=== PATIENT | female | born 1935 | race Caucasian/White ===

== ENCOUNTER 2018-10-19 11:44 | Inpatient (IN) | payer MEDICARE, MEDICAID ==
[~2018-10-19] VITALS: Ht 147.3 cm; Wt 54.0 kg
[2018-10-19] MEDS ORDERED: FUROSEMIDE 40MG/4ML VIAL IV ONE (12:30)
[2018-10-19 13:00] LABS: HEMATOCRIT. 47.6 % (36.0-48.0); HEMOGLOBIN. 16.1 g/dL (12.0-16.0); MEAN CORPUSCULAR HEMOGLOBIN 33.1 pg (28.0-32.0); MEAN CORPUSCULAR VOLUME 98.1 fL (81.0-99.0); MEAN PLATELET VOLUME 7.6 fl (7.4-10.4); PLATELET 287 x1000/uL (130-400); RED BLOOD CELL COUNT 4.85 mill/uL (4.2-5.4); RED CELL DISTRIBUTION WIDTH 15.1 % (11.6-14.6)
[2018-10-19 13:04] LABS: CHLORIDE 100 mEq/L (98-107)
[2018-10-19 13:30] LABS: PLATELET ESTIMATE NORMAL
[2018-10-19] MEDS ORDERED: ASPIRIN 325MG TABLET PO ONE (13:30)
[2018-10-19 16:00] VITALS: BP 122/71
[2018-10-19] MEDS ORDERED: POTA-79 MT (16:03)
[2018-10-19] MEDS ORDERED: FURO20TA4 MT (16:03)
[2018-10-19] MEDS ORDERED: PRED10TA23 MT (16:03)
[2018-10-19 17:08] VITALS: BP 122/71
[2018-10-19] MEDS ORDERED: DEXT 5%/0.45% NACL 1000ML 1,000 ML IV SCH (17:38)
[2018-10-19] MEDS ORDERED: ACETAMINOPHEN 325MG TABLET PO PRN (17:45)
[2018-10-19] MEDS ORDERED: HYDROMORPHONE HCL/PF 2MG/ML CPJ IV PRN (17:45)
[2018-10-19] MEDS ORDERED: ONDANSETRON HCL 4MG/2ML INJ IV PRN (17:45)
[2018-10-19] MEDS ORDERED: LORAZEPAM 2MG/ML CPJ IV PRN (17:45)
[2018-10-19] MEDS ORDERED: CELECOXIB 200MG CAPSULE PO SCH (18:15)
[2018-10-19] MEDS ORDERED: ENOXAPARIN 40MG/0.4ML SYR SUBCUT SCH ×2 (19:00→20:00)
[2018-10-19] MEDS ORDERED: LEVOFLOXACIN 500MG PREMIX 100 ML IV NR (19:30)
[2018-10-19 20:00] VITALS: BP 127/52
[2018-10-19] MEDS ORDERED: INFLUENZA VIRUS VACCINE(AFLURIA) 0.5ML SYR IM ONE (20:00)
[2018-10-19] MEDS: ATORVASTATIN CALCIUM 20MG TABLET PO SCH (20:55)
[2018-10-19] MEDS: DEXT 5%/0.45% NACL 1000ML 1,000 ML IV SCH (20:55)
[2018-10-19] MEDS: FUROSEMIDE 40MG TABLET PO SCH (20:56)
[2018-10-19] MEDS: CYCLOBENZAPRINE 10MG TABLET PO SCH (20:56)
[2018-10-19] MEDS: CELECOXIB 200MG CAPSULE PO SCH (20:56)
[2018-10-20] VITALS: BP 135/69
[2018-10-20 04:00] VITALS: BP 112/67
[2018-10-20 07:38] LABS: CHLORIDE 97 mEq/L (98-107)
[2018-10-20 07:42] LABS: HEMATOCRIT. 44.5 % (36.0-48.0); HEMOGLOBIN. 15.2 g/dL (12.0-16.0); MEAN CORPUSCULAR HEMOGLOBIN 33.3 pg (28.0-32.0); MEAN CORPUSCULAR VOLUME 97.9 fL (81.0-99.0); MEAN PLATELET VOLUME 7.7 fl (7.4-10.4); PLATELET 277 x1000/uL (130-400); RED BLOOD CELL COUNT 4.55 mill/uL (4.2-5.4)
[2018-10-20 07:47] LABS: T4 FREE 0.95 ng/dL (0.76-1.46)
[2018-10-20 08:53] VITALS: BP 102/58
[2018-10-20] MEDS: CALCIUM CARBONATE 1250MG TABLET (500MG ELEMENTAL CALCIUM) PO SCH ×3 (09:51→17:00)
[2018-10-20] MEDS: FOLIC ACID 1MG TABLET PO SCH (09:51)
[2018-10-20] MEDS: POTASSIUM CHLORIDE 10MEQ TABLET SR PO SCH ×2 (09:52→17:29)
[2018-10-20] MEDS: CELECOXIB 200MG CAPSULE PO SCH ×2 (09:52→17:29)
[2018-10-20] MEDS: CHOLECALCIFEROL (VIT D3) 400 UNIT TABLET PO SCH (09:52)
[2018-10-20] MEDS: FUROSEMIDE 40MG TABLET PO SCH ×2 (09:52→20:45)
[2018-10-20] MEDS: PREDNISONE 10MG TABLET PO SCH (09:52)
[2018-10-20 12:24] VITALS: BP 100/52
[2018-10-20] MEDS ORDERED: REGADENOSON 0.4 MG/5 ML IV NR (15:15)
[2018-10-20] MEDS ORDERED: KCL 20MEQ/100ML PREMIX 100 ML IV ONE (15:15)
[2018-10-20 16:42] VITALS: BP 103/64
[2018-10-20] MEDS ORDERED: KCL 20MEQ/100ML PREMIX 100 ML IV NR (17:00)
[2018-10-20 17:11] LABS: PLATELET ESTIMATE NORMAL
[2018-10-20] MEDS: SILVER SULFADIAZINE 1% CREAM 50GM TOP SCH (17:30)
[2018-10-20] MEDS ORDERED: LEVOFLOXACIN 250MG PREMIX 50 ML IV SCH (20:00)
[2018-10-20] MEDS ORDERED: ENOXAPARIN 30MG/0.3ML SYR SUBCUT SCH (20:00)
[2018-10-20] MEDS: CYCLOBENZAPRINE 10MG TABLET PO SCH (20:45)
[2018-10-20] MEDS: ATORVASTATIN CALCIUM 20MG TABLET PO SCH (20:45)
[2018-10-21] VITALS: BP 109/61
[2018-10-21 04:00] VITALS: BP 128/60
[2018-10-21 06:22] LABS: HEMATOCRIT. 45.3 % (36.0-48.0); HEMOGLOBIN. 15.3 g/dL (12.0-16.0); MEAN CORPUSCULAR HEMOGLOBIN 33.6 pg (28.0-32.0); MEAN CORPUSCULAR VOLUME 99.1 fL (81.0-99.0); MEAN PLATELET VOLUME 7.5 fl (7.4-10.4); PLATELET 242 x1000/uL (130-400); RED BLOOD CELL COUNT 4.57 mill/uL (4.2-5.4); RED CELL DISTRIBUTION WIDTH 14.9 % (11.6-14.6)
[2018-10-21] MEDS: FOLIC ACID 1MG TABLET PO SCH (08:01)
[2018-10-21] MEDS: CALCIUM CARBONATE 1250MG TABLET (500MG ELEMENTAL CALCIUM) PO SCH ×2 (08:01→14:36)
[2018-10-21] MEDS: CELECOXIB 200MG CAPSULE PO SCH (08:01)
[2018-10-21] MEDS: CHOLECALCIFEROL (VIT D3) 400 UNIT TABLET PO SCH (08:01)
[2018-10-21 08:12] LABS: CHLORIDE 99 mEq/L (98-107)
[2018-10-21] MEDS ORDERED: METHOTREXATE SODIUM/PF 50 MG/2 ML VIAL IM SCH (09:00)
[2018-10-21] MEDS ORDERED: REGADENOSON 0.4 MG/5 ML IV ONE (09:49)
[2018-10-21] MEDS: POTASSIUM CHLORIDE 10MEQ TABLET SR PO SCH (11:35)
[2018-10-21] MEDS: PREDNISONE 10MG TABLET PO SCH (11:35)
[2018-10-21] MEDS: SILVER SULFADIAZINE 1% CREAM 50GM TOP SCH (11:35)
[2018-10-21] MEDS: FUROSEMIDE 40MG TABLET PO SCH (11:35)
[2018-10-21] MEDS: DEXT 5%/0.45% NACL 1000ML 1,000 ML IV SCH (11:36)
[2018-10-21 12:00] VITALS: BP 110/47
[2018-10-21 13:33] LABS: PLATELET ESTIMATE NORMAL
[2018-10-21 14:52] VITALS: BP 110/47
[2018-10-21] MEDS ORDERED: ENOXAPARIN 40MG/0.4ML SYR SUBCUT SCH (21:00)
== END 2018-10-21 15:46 | disposition home health service (06) | DRG 293 ==
LOC: ER 11:44 → 6WST 13:40 → EDBEDREQ 13:43 → EDBEDREQTM 13:43 → EDBEDREQ 13:44 → ENRESERV 13:56
PROVIDERS: ADMIT Internal Medicine Rheumatology; ATTEND Internal Medicine Rheumatology
DX: I50.33 Acute on chronic diastolic (congestive) heart failure (principal); M35.00 Sjogren syndrome, unspecified; E87.6 Hypokalemia; J44.9 Chronic obstructive pulmonary disease, unspecified; E78.00 Pure hypercholesterolemia, unspecified; M06.80 Other specified rheumatoid arthritis, unspecified site; E78.5 Hyperlipidemia, unspecified; M51.36 Other intervertebral disc degeneration, lumbar region; M50.30 Other cervical disc degeneration, unspecified cervical region; M81.0 Age-related osteoporosis without current pathological fracture; G72.9 Myopathy, unspecified; M41.86 Other forms of scoliosis, lumbar region; F41.9 Anxiety disorder, unspecified; K58.9 Irritable bowel syndrome, unspecified; I73.9 Peripheral vascular disease, unspecified; I51.9 Heart disease, unspecified; I77.6 Arteritis, unspecified; M47.816 Spondylosis without myelopathy or radiculopathy, lumbar region; M47.892 Other spondylosis, cervical region; Z82.49 Family history of ischemic heart disease and other diseases of the circulatory system; Z82.0 Family history of epilepsy and other diseases of the nervous system; Z79.899 Other long term (current) drug therapy; Z90.49 Acquired absence of other specified parts of digestive tract
CPT/HCPCS: 36415; 71045; 72110; 78452; 80048; 83735; 83880; 84439; 84484; 93005; 93017; 93306; 93970; 96374; 97162; 97166; 99285; A9500; C1893; J1650; J1940; J1956; J2785; J3480; J3490; J7512; J9260

== ENCOUNTER 2018-11-01 12:35 | Inpatient (IN) | payer MEDICARE, MEDICAID ==
[~2018-11-01] VITALS: Ht 157.5 cm; Wt 58.1 kg
[~2018-11-01 12:35] MED LIST: FURO20TA4 MT; POTA-79 MT; PRED10TA23 MT
[2018-11-01 13:27] LABS: HEMATOCRIT. 43.2 % (36.0-48.0); HEMOGLOBIN. 14.9 g/dL (12.0-16.0); MEAN CORPUSCULAR HEMOGLOBIN 33.6 pg (28.0-32.0); MEAN CORPUSCULAR VOLUME 97.5 fL (81.0-99.0); MEAN PLATELET VOLUME 7.6 fl (7.4-10.4); PLATELET 151 x1000/uL (130-400); RED BLOOD CELL COUNT 4.43 mill/uL (4.2-5.4); RED CELL DISTRIBUTION WIDTH 14.9 % (11.6-14.6)
[2018-11-01 13:32] LABS: CHLORIDE 95 mEq/L (98-107)
[2018-11-01 13:48] LABS: PLATELET ESTIMATE NORMAL
[2018-11-01] MEDS ORDERED: AZITHROMYCIN 500 MG in DEXT 5% WATER 250 ML IV STA (14:00)
[2018-11-01] MEDS ORDERED: CEFTRIAXONE 1 G PREMIX 50 ML IV STA (14:00)
[2018-11-01] MEDS ORDERED: ENOXAPARIN 60MG/0.6ML SYR SUBCUT NR (15:00)
[2018-11-01 17:35] LABS: CLARITY URINE CLOUDY (CLEAR); COLOR URINE YELLOW (YELLOW); KETONES URINE NEGATIVE (NEGATIVE); LEUKOCYTE ESTERASE URINE 1+ (NEGATIVE); NITRITE URINE NEGATIVE (NEGATIVE); OCCULT BLOOD URINE 1+ (NEGATIVE); PROTEIN URINE NEGATIVE (NEGATIVE); SPECIFIC GRAVITY URINE 1.031 (1.005-1.030); UROBILINOGEN URINE 0.2 E.U./dL (0.2-1.0)
[2018-11-01] MEDS ORDERED: IPRATROPIUM/ALBUTEROL 0.5-3(2.5)MG/3ML NEB HHN SCH (18:15)
[2018-11-01] MEDS ORDERED: ONDANSETRON HCL 4MG/2ML INJ IV PRN (18:45)
[2018-11-01] MEDS ORDERED: DIPHENHYDRAMINE 50MG/ML VIAL IV PRN (18:45)
[2018-11-01] MEDS ORDERED: MAGNESIUM/ALUMINUM HYDROXIDE/SIMETHICONE 30ML UDC PO PRN (18:45)
[2018-11-01 19:07] LABS: BG BASE EXCESS -1.3 mmol/L (-2.0-2.0); BG CARBOXYHEMOGLOBIN 1.2 % (0.5-1.5); BG DEOXYHEMOGLOBIN 14.7 % (0.0-5.0); BG FRACTION INSPIRED OXYGEN 32; BG HCO3 ACT 20.5 mmol/L (22.0-26.0); BG METHEMOGLOBIN 0.3 % (0.0-1.5); BG OXYGEN SATURATION 85.1 % (92.0-98.5); BG OXYHEMOGLOBIN 83.8 % (94.0-97.0); BG PCO2 26.8 mmHg (35.0-45.0); BG PH 7.502 (7.350-7.450); BG PO2 47.6 mmHg (75.0-100.0); BG SAMPLE SITE LEFT RADIAL; BG TOTAL HEMOGLOBIN 12.9 g/dL (12.0-18.0); BG VENT MODE NASAL CANNULA
[2018-11-02] VITALS (7 sets, daily range): BP systolic 87–123; BP diastolic 51–83
[2018-11-02] MEDS ORDERED: SODIUM CHLORIDE 0.9% 500 ML IV PRN (02:15)
[2018-11-02] MEDS ORDERED: METOPROLOL TARTRATE 5MG/5ML VIAL IV PRN (02:15)
[2018-11-02] MEDS: DEXT 5%/0.45% NACL 1000ML 1,000 ML IV SCH ×2 (02:51→14:26)
[2018-11-02] MEDS: DOCUSATE SODIUM 100MG CAPSULE PO SCH ×2 (07:57→18:14)
[2018-11-02 13:06] LABS: CHLORIDE 99 mEq/L (98-107)
[2018-11-02 13:10] LABS: INR 1.1; PARTIAL THROMBOPLASTIN TIME 29.8 sec (23.4-31.0); PROTHROMBIN TIME 10.7 sec (9.1-11.1)
[2018-11-02 13:15] LABS: CREATINE KINASE 29 IU/L (26-192)
[2018-11-02 13:17] LABS: CREATINE KINASE MB FRACTION < 1.0 ng/mL (0.5-3.6)
[2018-11-02] MEDS ORDERED: SODIUM BICARBONATE 4% (2.4MEQ) 5ML VIAL IV ONE (13:32)
[2018-11-02] MEDS ORDERED: IOHEXOL-300 100 ML BOTTLE ONE (13:32)
[2018-11-02] MEDS ORDERED: LIDOCAINE HCL 1% 20ML VIAL (Pyxis) INJ ONE (13:32)
[2018-11-02 15:14] LABS: BG BASE EXCESS 2.5 mmol/L (-2.0-2.0); BG DEOXYHEMOGLOBIN 10.3 % (0.0-5.0); BG FRACTION INSPIRED OXYGEN 100; BG HCO3 ACT 24.5 mmol/L (22.0-26.0); BG METHEMOGLOBIN 0.1 % (0.0-1.5); BG OXYGEN SATURATION 89.6 % (92.0-98.5); BG OXYHEMOGLOBIN 88.6 % (94.0-97.0); BG PCO2 30.3 mmHg (35.0-45.0); BG PH 7.525 (7.350-7.450); BG SAMPLE SITE RIGHT BRACHIAL; BG TOTAL HEMOGLOBIN 13.4 g/dL (12.0-18.0); BG VENT MODE MASK - NRB
[2018-11-02 17:18] LABS: BG BASE EXCESS 2.4 mmol/L (-2.0-2.0); BG CARBOXYHEMOGLOBIN 0.7 % (0.5-1.5); BG DEOXYHEMOGLOBIN 4.4 % (0.0-5.0); BG FRACTION INSPIRED OXYGEN 100; BG HCO3 ACT 24.3 mmol/L (22.0-26.0); BG METHEMOGLOBIN 0.1 % (0.0-1.5); BG OXYGEN SATURATION 95.6 % (92.0-98.5); BG OXYHEMOGLOBIN 94.8 % (94.0-97.0); BG PH 7.526 (7.350-7.450); BG PO2 75.3 mmHg (75.0-100.0); BG SAMPLE SITE RIGHT BRACHIAL; BG TOTAL HEMOGLOBIN 13.9 g/dL (12.0-18.0); BG VENT MODE MASK - BIPAP
[2018-11-02] MEDS: ACETAMINOPHEN 325MG TABLET PO PRN (18:15)
[2018-11-02] MEDS ORDERED: ZOSYN XX SCH (18:45)
[2018-11-02] MEDS ORDERED: HEPARIN 5000 UNITS/ML VIAL IV NR (19:30)
[2018-11-02] MEDS ORDERED: HEPARIN BOLUS PRN aPTT 37-44 IV (19:45)
[2018-11-02] MEDS ORDERED: HEPARIN 80 UNITS/KG BOLUS IV NR (19:45)
[2018-11-02] MEDS ORDERED: HEPARIN 80 UNITS/KG BOLUS IV SCH (19:45)
[2018-11-02] MEDS ORDERED: HEPARIN BOLUS PRN aPTT <36 IV ×2 (19:45)
[2018-11-02] MEDS ORDERED: HEPARIN 25,000 UNITS PREMIX 500 ML IV SCH (19:45)
[2018-11-02] MEDS ORDERED: PRED5TAB PO (20:08)
[2018-11-02] MEDS ORDERED: MONT10TA24 PO (20:08)
[2018-11-02] MEDS ORDERED: FURO-151 PO (20:08)
[2018-11-02] MEDS ORDERED: ATOR20TA PO (20:08)
[2018-11-02] MEDS ORDERED: CELE200C PO (20:08)
[2018-11-02] MEDS ORDERED: FOLI-43 PO (20:08)
[2018-11-02] MEDS ORDERED: METO25TA6 PO (20:08)
[2018-11-02] MEDS: METOPROLOL TARTRATE 25MG TABLET PO SCH (21:00)
[2018-11-03] VITALS (14 sets, daily range): BP systolic 83–144; BP diastolic 38–77
[2018-11-03] MEDS ORDERED: HEPARIN BOLUS PRN aPTT 37-44 IV
[2018-11-03] MEDS ORDERED: HEPARIN BOLUS PRN aPTT <36 IV
[2018-11-03] MEDS ORDERED: HEPARIN 5000 UNITS/ML VIAL IV NR
[2018-11-03] MEDS: DEXT 5%/0.45% NACL 1000ML 1,000 ML IV SCH ×2 (01:10→17:35)
[2018-11-03 02:18] LABS: CHLORIDE 101 mEq/L (98-107)
[2018-11-03 03:12] LABS: HEMATOCRIT. 39.4 % (36.0-48.0); HEMOGLOBIN. 13.6 g/dL (12.0-16.0); MEAN CORPUSCULAR HEMOGLOBIN 33.6 pg (28.0-32.0); MEAN CORPUSCULAR VOLUME 97.4 fL (81.0-99.0); MEAN PLATELET VOLUME 7.7 fl (7.4-10.4); PLATELET 171 x1000/uL (130-400); RED BLOOD CELL COUNT 4.04 mill/uL (4.2-5.4); RED CELL DISTRIBUTION WIDTH 15.3 % (11.6-14.6)
[2018-11-03] MEDS: METOPROLOL TARTRATE 5MG/5ML VIAL IV PRN (05:15)
[2018-11-03] MEDS: PIPERACILLIN/TAZ 2.25G PREMIX 50 ML IV SCH ×4 (05:15→23:43)
[2018-11-03 07:01] LABS: PLATELET ESTIMATE NORMAL
[2018-11-03] MEDS: DOCUSATE SODIUM 100MG CAPSULE PO SCH ×2 (09:00→17:34)
[2018-11-03] MEDS: METOPROLOL TARTRATE 25MG TABLET PO SCH ×2 (09:09→21:00)
[2018-11-03] MEDS: APIXABAN 5 MG TABLET PO SCH ×2 (10:33→17:33)
[2018-11-03] MEDS: ACETAMINOPHEN 325MG TABLET PO PRN ×2 (11:56→18:38)
[2018-11-03] MEDS ORDERED: FLUCONAZOLE 150MG TABLET PO NR (12:00)
[2018-11-03] MEDS ORDERED: SODIUM CHLORIDE 0.9% 500 ML IV ONE (16:45)
[2018-11-03] MEDS ORDERED: DIGOXIN 500MCG/2ML AMP IV NR (17:00)
[2018-11-03] MEDS ORDERED: ALBUMIN HUMAN 12.5GM/50ML (25%) IV PRN (17:00)
[2018-11-04] VITALS (12 sets, daily range): BP systolic 73–132; BP diastolic 30–81
[2018-11-04] MEDS: SILVER SULFADIAZINE 1% CREAM 25GM TOP SCH ×2 (05:25→08:41)
[2018-11-04] MEDS: PIPERACILLIN/TAZ 2.25G PREMIX 50 ML IV SCH ×4 (05:26→23:03)
[2018-11-04] MEDS: DEXT 5%/0.45% NACL 1000ML 1,000 ML IV SCH ×2 (06:37→21:43)
[2018-11-04 07:51] LABS: CHLORIDE 101 mEq/L (98-107)
[2018-11-04] MEDS: DOCUSATE SODIUM 100MG CAPSULE PO SCH ×2 (08:22→17:18)
[2018-11-04] MEDS: APIXABAN 5 MG TABLET PO SCH ×2 (08:22→17:19)
[2018-11-04] MEDS: METOPROLOL TARTRATE 25MG TABLET PO SCH ×2 (08:31→21:00)
[2018-11-04 10:49] LABS: HEMATOCRIT. 43.6 % (36.0-48.0); HEMOGLOBIN. 14.3 g/dL (12.0-16.0); MEAN CORPUSCULAR HEMOGLOBIN 33.1 pg (28.0-32.0); MEAN CORPUSCULAR VOLUME 100.7 fL (81.0-99.0); MEAN PLATELET VOLUME 8.1 fl (7.4-10.4); PLATELET 143 x1000/uL (130-400); RED BLOOD CELL COUNT 4.34 mill/uL (4.2-5.4)
[2018-11-04 13:43] LABS: BG BASE EXCESS -0.9 mmol/L (-2.0-2.0); BG CARBOXYHEMOGLOBIN 0.9 % (0.5-1.5); BG DEOXYHEMOGLOBIN 7.6 % (0.0-5.0); BG FRACTION INSPIRED OXYGEN 100; BG HCO3 ACT 21.8 mmol/L (22.0-26.0); BG METHEMOGLOBIN 0.2 % (0.0-1.5); BG OXYGEN SATURATION 92.3 % (92.0-98.5); BG OXYHEMOGLOBIN 91.3 % (94.0-97.0); BG PCO2 30.7 mmHg (35.0-45.0); BG PH 7.469 (7.350-7.450); BG PO2 58.6 mmHg (75.0-100.0); BG PRESSURE SUPPORT 7; BG SAMPLE SITE LEFT BRACHIAL; BG TOTAL HEMOGLOBIN 13.3 g/dL (12.0-18.0); BG VENT MODE MASK - BIPAP; BG VENT RATE 14 set
[2018-11-04 13:58] LABS: PLATELET ESTIMATE NORMAL
[2018-11-04] MEDS ORDERED: DIGOXIN 500MCG/2ML AMP IV NR (15:30)
[2018-11-04] MEDS: METOPROLOL TARTRATE 5MG/5ML VIAL IV PRN (16:49)
[2018-11-04] MEDS: ACETAMINOPHEN 325MG TABLET PO PRN (17:56)
[2018-11-05] VITALS: BP 78/46
[2018-11-05 02:00] VITALS: BP 116/46
[2018-11-05 04:00] VITALS: BP 96/49
[2018-11-05 04:06] LABS: BG BASE EXCESS 0.1 mmol/L (-2.0-2.0); BG BILEVEL POS AIRWAY PRESSURE 15/5; BG CARBOXYHEMOGLOBIN 1.3 % (0.5-1.5); BG DEOXYHEMOGLOBIN 15.7 % (0.0-5.0); BG FRACTION INSPIRED OXYGEN 100; BG HCO3 ACT 23.5 mmol/L (22.0-26.0); BG METHEMOGLOBIN 0.3 % (0.0-1.5); BG OXYHEMOGLOBIN 82.7 % (94.0-97.0); BG PCO2 34.2 mmHg (35.0-45.0); BG PH 7.454 (7.350-7.450); BG PO2 47.8 mmHg (75.0-100.0); BG SAMPLE SITE LEFT RADIAL; BG TIDAL VOLUME(mL) 597 mL; BG TOTAL HEMOGLOBIN 13.9 g/dL (12.0-18.0); BG VENT MODE MASK - BIPAP; BG VENT RATE 14 set
[2018-11-05] MEDS: PIPERACILLIN/TAZ 2.25G PREMIX 50 ML IV SCH (06:04)
[2018-11-05] MEDS ORDERED: SUCCINYLCHOLINE CHLORIDE 200MG/10ML IV ONE (15:27)
[2018-11-05] MEDS ORDERED: ETOMIDATE 2MG/ML 10ML VIAL IV ONE (15:27)
[2018-11-05] MEDS ORDERED: SODIUM CHLORIDE 0.9% 10ML VIAL ONE (15:27)
[2018-11-05] MEDS ORDERED: SODIUM BICARBONATE 7.5% 0.9 MEQ/ML 50ML SYR IV ONE (15:41)
[2018-11-05] MEDS ORDERED: ATROPINE SULFATE 1MG/10ML SYR ONE (15:41)
[2018-11-05] MEDS ORDERED: EPINEPHRINE 0.1MG/ML (1:10,000) 10ML SYR ONE (15:41)
[2018-11-10] MEDS ORDERED: APIXABAN 5 MG TABLET PO SCH (09:00)
== END 2018-11-05 06:30 | disposition expired | DRG 871 ==
LOC: ER 12:35 → EDBEDREQ 15:23 → EDBEDREQTM 15:23 → SUPCPDRO 17:59 → EDBEDREQSVC 20:21 → EDBEDREQTM 20:21 → ENRESERV 11-02 08:39 → 5EST 11-02 11:31 → CVICU 11-05 05:33
PROVIDERS: ADMIT Internal Medicine Rheumatology; ATTEND Internal Medicine Rheumatology
PROC: 5A09457 Assistance with Respiratory Ventilation, 24-96 Consecutive Hours, Continuous Positive Airway Pressure (ICD-10-PCS; 2018-11-02)
PROC: 0BH18EZ Insertion of Endotracheal Airway into Trachea, Via Natural or Artificial Opening Endoscopic (ICD-10-PCS; principal; 2018-11-05)
PROC: 5A1935Z Respiratory Ventilation, Less than 24 Consecutive Hours (ICD-10-PCS; 2018-11-05)
PROC: 5A12012 Performance of Cardiac Output, Single, Manual (ICD-10-PCS; 2018-11-05)
DX: A41.9 Sepsis, unspecified organism (principal); J18.9 Pneumonia, unspecified organism; I26.99 Other pulmonary embolism without acute cor pulmonale; J96.01 Acute respiratory failure with hypoxia; I82.403 Acute embolism and thrombosis of unspecified deep veins of lower extremity, bilateral; J44.0 Chronic obstructive pulmonary disease with (acute) lower respiratory infection; N39.0 Urinary tract infection, site not specified; N17.9 Acute kidney failure, unspecified; I50.32 Chronic diastolic (congestive) heart failure; I13.0 Hypertensive heart and chronic kidney disease with heart failure and stage 1 through stage 4 chronic kidney disease, or unspecified chronic kidney disease; E87.1 Hypo-osmolality and hyponatremia; I48.0 Paroxysmal atrial fibrillation; I73.9 Peripheral vascular disease, unspecified; K58.9 Irritable bowel syndrome, unspecified; M35.00 Sjogren syndrome, unspecified; M06.9 Rheumatoid arthritis, unspecified; M81.0 Age-related osteoporosis without current pathological fracture; R62.7 Adult failure to thrive; R79.89 Other specified abnormal findings of blood chemistry; E88.09 Other disorders of plasma-protein metabolism, not elsewhere classified; M19.90 Unspecified osteoarthritis, unspecified site; M51.36 Other intervertebral disc degeneration, lumbar region; I46.9 Cardiac arrest, cause unspecified; M50.30 Other cervical disc degeneration, unspecified cervical region; I65.29 Occlusion and stenosis of unspecified carotid artery; N18.9 Chronic kidney disease, unspecified; M47.816 Spondylosis without myelopathy or radiculopathy, lumbar region; M47.892 Other spondylosis, cervical region; F41.9 Anxiety disorder, unspecified; E78.00 Pure hypercholesterolemia, unspecified; I08.1 Rheumatic disorders of both mitral and tricuspid valves; B95.2 Enterococcus as the cause of diseases classified elsewhere; E78.5 Hyperlipidemia, unspecified; Z82.49 Family history of ischemic heart disease and other diseases of the circulatory system; Z74.01 Bed confinement status; Z86.79 Personal history of other diseases of the circulatory system; Z90.49 Acquired absence of other specified parts of digestive tract; Z82.0 Family history of epilepsy and other diseases of the nervous system; Z82.61 Family history of arthritis
CPT/HCPCS: 36415; 36600; 71045; 71275; 80048; 82375; 82550; 82553; 82805; 83605; 83880; 84134; 84145; 84484; 87077; 87186; 92950; 93005; 93970; 94002; 94660; 96365; 96366; 96368; 96372; 99291; A4216; J0330; J0456; J0461; J0696; J1160; J1200; J1644; J1650; J2543; J3490; J7042; J7060; Q9967; A4315